=== PATIENT | female | born 1990 | race Caucasian/White ===

== ENCOUNTER → 2020-05-29 | Outpatient (CLI) | payer OTHER ==
[~2020-05-29] VITALS: Ht 167.6 cm; Wt 59.0 kg
== END ==
LOC: OPSV 13:00
DX: G35 Multiple sclerosis (principal)
CPT/HCPCS: 96365; 96375; J2323; J2930

== ENCOUNTER → 2020-06-26 | Outpatient (CLI) | payer OTHER ==
[~2020-06-26] VITALS: Ht 167.6 cm; Wt 59.0 kg
[2020-06-26 12:44] LABS: HEMOGLOBIN 11.2 gm/dl (12.3-15.3); RED BLOOD COUNT 4.09 M/UL (4.00-5.10); WHITE BLOOD COUNT 7.6 K/UL (4.5-11.0)
[2020-06-26 13:05] LABS: BUN/CREATININE RATIO 25 (0-10)
[2020-07-06 15:11] LABS: JCV ANTIBODY Negative (.)
== END ==
LOC: OPSV 12:17
PROVIDERS: Psychiatry & Neurology Clinical Neurophysiology
DX: G35 Multiple sclerosis (principal)
CPT/HCPCS: 36415; 80053; 85027; 96365; 96375; J2323; J2930

== ENCOUNTER → 2020-07-24 | Outpatient (CLI) | payer OTHER ==
[~2020-07-24] VITALS: Ht 167.6 cm; Wt 59.0 kg
== END ==
LOC: OPSV 11:57
DX: G35 Multiple sclerosis (principal)
CPT/HCPCS: 96365; 96375; J2323; J2930

== ENCOUNTER → 2020-08-25 | Outpatient (CLI) | payer OTHER ==
[~2020-08-25] VITALS: Ht 167.6 cm; Wt 59.0 kg
[2020-08-25 13:04] LABS: HEMOGLOBIN 10.8 gm/dl (12.3-15.3); RED BLOOD COUNT 4.05 M/UL (4.00-5.10); WHITE BLOOD COUNT 8.2 K/UL (4.5-11.0)
[2020-08-25 13:29] LABS: BUN/CREATININE RATIO 23 (0-10)
== END ==
LOC: OPSV 12:00
PROVIDERS: Psychiatry & Neurology Clinical Neurophysiology
DX: G35 Multiple sclerosis (principal)
CPT/HCPCS: 36415; 80053; 85025; 96365; 96375; J2323; J2930

== ENCOUNTER → 2020-10-01 | Outpatient (CLI) | payer OTHER ==
[~2020-10-01] VITALS: Ht 167.6 cm; Wt 59.0 kg
[2020-10-01 10:50] LABS: HEMOGLOBIN 11.8 gm/dl (12.3-15.3); RED BLOOD COUNT 4.37 M/UL (4.00-5.10); WHITE BLOOD COUNT 7.9 K/UL (4.5-11.0)
[2020-10-01 11:07] LABS: BUN/CREATININE RATIO 18 (0-10)
[2020-10-08 16:15] LABS: JCV ANTIBODY Negative (.)
== END ==
LOC: OPSV 09:00
PROVIDERS: Psychiatry & Neurology Clinical Neurophysiology
DX: G35 Multiple sclerosis (principal)
CPT/HCPCS: 36415; 80053; 85027; 96365; 96375; J2323; J2930

== ENCOUNTER → 2020-10-29 | Outpatient (CLI) | payer OTHER ==
[~2020-10-29] VITALS: Ht 167.6 cm; Wt 59.0 kg
== END ==
LOC: OPSV 10:00
DX: G35 Multiple sclerosis (principal)
CPT/HCPCS: 96365; 96375; J2323; J2930

== ENCOUNTER → 2020-11-26 | Outpatient (CLI) | payer OTHER ==
[~2020-11-26] VITALS: Ht 167.6 cm; Wt 59.0 kg
== END ==
LOC: OPSV 11:00
DX: G35 Multiple sclerosis (principal)
CPT/HCPCS: J2323; J2930

== ENCOUNTER → 2021-01-05 | Outpatient (CLI) | payer OTHER ==
[~2021-01-05] VITALS: Ht 167.6 cm; Wt 59.0 kg
[2021-01-05 16:04] LABS: RED BLOOD COUNT 4.51 M/UL (4.00-5.10); WHITE BLOOD COUNT 7.4 K/UL (4.5-11.0)
[2021-01-05 16:48] LABS: BUN/CREATININE RATIO 25 (0-10)
== END ==
LOC: OPSV 14:00
PROVIDERS: Psychiatry & Neurology Clinical Neurophysiology
DX: G35 Multiple sclerosis (principal)
CPT/HCPCS: 80053; 85027; 96365; 96375; J2323; J2930

== ENCOUNTER → 2021-02-03 | Outpatient (CLI) | payer OTHER ==
[~2021-02-03] VITALS: Ht 167.6 cm; Wt 59.0 kg
== END ==
LOC: OPSV 12:58
DX: G35 Multiple sclerosis (principal)
CPT/HCPCS: 96365; 96375; J2323; J2930

== ENCOUNTER → 2021-03-15 | Outpatient (CLI) | payer OTHER ==
[~2021-03-15] VITALS: Ht 167.6 cm; Wt 59.0 kg
== END ==
LOC: OPSV 03-03 13:00
DX: G35 Multiple sclerosis (principal)
CPT/HCPCS: 96365; 96375; J2323; J2930

== ENCOUNTER → 2021-04-13 | Outpatient (CLI) | payer OTHER ==
[~2021-04-13] VITALS: Ht 167.6 cm; Wt 59.0 kg
[2021-04-13 13:15] LABS: HEMOGLOBIN 11.9 gm/dl (12.3-15.3); RED BLOOD COUNT 4.32 M/UL (4.00-5.10); WHITE BLOOD COUNT 9.9 K/UL (4.5-11.0)
[2021-04-13 13:34] LABS: BUN/CREATININE RATIO 34 (0-10)
== END ==
LOC: OPSV 12:00
PROVIDERS: Psychiatry & Neurology Clinical Neurophysiology
DX: G35 Multiple sclerosis (principal)
CPT/HCPCS: 36415; 80053; 85027; 96365; 96375; J2323; J2930

== ENCOUNTER → 2021-05-11 | Outpatient (CLI) | payer OTHER ==
[~2021-05-11] VITALS: Ht 167.6 cm; Wt 59.0 kg
== END ==
LOC: OPSV 11:32
DX: G35 Multiple sclerosis (principal)
CPT/HCPCS: 96365; 96375; J2323; J2930

== ENCOUNTER → 2021-07-01 | Outpatient (CLI) | payer OTHER ==
[~2021-07-01] VITALS: Ht 167.6 cm; Wt 59.0 kg
== END ==
LOC: OPSV 06-15 12:00
DX: G35 Multiple sclerosis (principal)
CPT/HCPCS: 96365; 96375; J2323; J2930

== ENCOUNTER → 2021-07-29 | Outpatient (CLI) | payer OTHER ==
[2021-07-29 13:45] LABS: HEMOGLOBIN 11.6 gm/dl (12.3-15.3); RED BLOOD COUNT 4.14 M/UL (4.00-5.10); WHITE BLOOD COUNT 9.2 K/UL (4.5-11.0)
[2021-07-29 14:07] LABS: BUN/CREATININE RATIO 28 (0-10)
== END ==
LOC: OPSV 12:30
PROVIDERS: Psychiatry & Neurology Clinical Neurophysiology
DX: G35 Multiple sclerosis (principal)
CPT/HCPCS: 80053; 85027; 96365; 96375; J2323; J2930

== ENCOUNTER → 2021-08-30 | Outpatient (CLI) | payer OTHER ==
[~2021-08-30] VITALS: Ht 167.6 cm; Wt 59.0 kg
== END ==
LOC: OPSV 08-26 13:00
DX: G35 Multiple sclerosis (principal)
CPT/HCPCS: 96365; 96375; J2323; J2930

== ENCOUNTER → 2021-10-04 | Outpatient (CLI) | payer OTHER ==
[~2021-10-04] VITALS: Ht 167.6 cm; Wt 59.0 kg
== END ==
LOC: OPSV 09-27 12:00
DX: G35 Multiple sclerosis (principal)
CPT/HCPCS: 96365; 96375; J2323; J2930

== ENCOUNTER → 2021-11-02 | Outpatient (CLI) | payer OTHER ==
[~2021-11-02] VITALS: Ht 167.6 cm; Wt 59.0 kg
== END ==
LOC: OPSV 12:50
DX: G35 Multiple sclerosis (principal)
CPT/HCPCS: 96365; 96375; J2323; J2930

== ENCOUNTER → 2022-02-17 | Outpatient (CLI) | payer OTHER | LOC: OPSV 11:52 | DX: G35 Multiple sclerosis (principal) | CPT/HCPCS: 96365; 96375; J2323; J2930; Q0177 ==